=== PATIENT | male | born 1965 | race Caucasian/White ===

== ENCOUNTER 2017-11-22 05:21 | Day surgery (SDC) | payer OTHER ==
[~2017-11-22] VITALS: Ht 175.3 cm; Wt 78.2 kg
[2017-11-22] MEDS ORDERED: LACTATED RINGERS 1,000 ML IV SCH (06:12)
[2017-11-22 06:29] VITALS: BP 123/81
[2017-11-22] MEDS ORDERED: NONE PER PT (06:29)
[2017-11-22] MEDS ORDERED: OFLOXACIN OPHTH 0.3%, 5ML ONE (07:05)
[2017-11-22] MEDS ORDERED: LIDOCAINE/PF 1%, 30ML ONE (07:05)
[2017-11-22] MEDS ORDERED: BACITRACIN OINT 500U/GM, 15 GM ONE (07:06)
[2017-11-22] MEDS ORDERED: EPINEPHRINE 1 MG/ML, 1ML ONE (07:07)
[2017-11-22] MEDS ORDERED: FENTANYL PF 100 MCG/2ML ONE (07:15)
[2017-11-22] MEDS ORDERED: MIDAZOLAM 1 MG/ML, 2ML ONE (07:15)
[2017-11-22] MEDS ORDERED: ONDANSETRON ODT 8 MG PO ONE (07:30)
[2017-11-22] MEDS ORDERED: SCOPOLAMINE PATCH, 1.5MG PATCH.TD72 TD ONE (07:30)
[2017-11-22] MEDS ORDERED: GABAPENTIN 300 MG CAPSULE PO ONE (07:30)
[2017-11-22] MEDS ORDERED: OXYcodone IR 5MG TABLET PO ONE (07:30)
[2017-11-22] MEDS ORDERED: FAMOTIDINE 20 MG TABLET PO ONE (07:30)
[2017-11-22] MEDS ORDERED: ACETAMINOPHEN 500 MG TABLET PO ONE (07:30)
[2017-11-22] MEDS ORDERED: CEFAZOLIN 1,000 MG ONE (08:37)
[2017-11-22] MEDS ORDERED: ONDANSETRON 2MG/ML, 2ML ONE (08:37)
[2017-11-22] MEDS ORDERED: DEXAMETHASONE 4 MG/ML, 1ML ONE (08:37)
[2017-11-22] MEDS ORDERED: PROPOFOL 10 MG/ML, 20ML ONE (08:37)
[2017-11-22] MEDS ORDERED: GELFILM OPHTHALMIC DRESSING ONE (08:59)
[2017-11-22] MEDS ORDERED: PROMETHAZINE 25 MG/ML, 1ML IV PRN (09:00)
[2017-11-22] MEDS ORDERED: hydrALAzine 20 MG/ML, 1ML IV PRN (09:00)
[2017-11-22] MEDS ORDERED: HYDROcodone/APAP 7.5-325MG/15ML UDC PO PRN (09:00)
[2017-11-22] MEDS ORDERED: MEPERIDINE/PF 25MG/0.5ML IVPush PRN (09:00)
[2017-11-22] MEDS ORDERED: MIDAZOLAM 1 MG/ML, 2ML IV PRN (09:00)
[2017-11-22] MEDS ORDERED: LABETALOL 5MG/ML, 20ML IV PRN (09:00)
[2017-11-22] MEDS ORDERED: FENTANYL PF 100 MCG/2ML IV PRN (09:00)
[2017-11-22] MEDS ORDERED: OXYcodone 5 MG/5 ML ORAL.SOL UDC PO PRN (09:00)
[2017-11-22] MEDS ORDERED: ALBUTEROL SULFATE 2.5 MG/3 ML NPPB PRN (09:00)
[2017-11-22] MEDS ORDERED: HYDROmorphone 1 MG/ML, 1ML IV PRN (09:00)
[2017-11-22] MEDS ORDERED: EPHEDRINE 50 MG/ML, 1ML IVPush PRN (09:00)
[2017-11-22] MEDS ORDERED: BACITRACIN ZINC OINT 500U/GM, 0.9 GM TP ONE (09:30)
== END 2017-11-22 11:15 ==
LOC: OUT 05:21
PROVIDERS: ATTEND Specialist
DX: H72.01 Central perforation of tympanic membrane, right ear (principal); H90.A31 Mixed conductive and sensorineural hearing loss, unilateral, right ear with restricted hearing on the contralateral side; Z88.1 Allergy status to other antibiotic agents
CPT/HCPCS: 21235; 69631; J0171; J0690; J1100; J2250; J2405; J2704; J3010; J3490; J7120; Q0162

== ENCOUNTER 2019-09-07 10:11 | Outpatient (CLI) | payer OTHER ==
[~2019-09-07 10:11] MED LIST: NONE PER PT
[2019-09-07 11:28] LABS: BASOPHILS # (AUTO) 0.03 x10^3/uL (0-0.1); BASOPHILS % (AUTO) 1 % (0-1); EOSINOPHILS # (AUTO) 0.23 x10^3/uL (0-0.4); EOSINOPHILS % (AUTO) 5 % (1-7); LYMPHOCYTES # (AUTO) 1.17 x10^3/uL (1-3.4); LYMPHOCYTES % (AUTO) 25 % (22-44); MD NO; MEAN CORPUSCULAR HEMOGLOBIN 28.9 pg (27.5-34.5); MEAN CORPUSCULAR VOLUME 85.1 fL (81-97); MEAN PLATELET VOLUME 7.6 fL (7.4-10.4); MONOCYTES # (AUTO) 0.44 x10^3/uL (0.2-0.8); MONOCYTES % (AUTO) 10 % (2-9); NEUTROPHILS # (AUTO) 2.74 x10^3/uL (1.8-6.8); NEUTROPHILS % (AUTO) 59 % (42-75); PLATELET COUNT 168 x10^3/uL (130-400); RED BLOOD COUNT 4.96 x10^6/uL (4.38-5.82); RED CELL DISTRIBUTION WIDTH 16.9 % (9.4-14.8)
[2019-09-07 11:38] LABS: ANION GAP 8 mmol/L (5-15); CALCIUM 8.5 mg/dL (8.5-10.1); CHLORIDE 108 mmol/L (98-107); CREATININE 1.05 mg/dL (0.7-1.3)
[2019-09-07 11:53] LABS: INTERNATIONAL NORMALIZED RATIO 0.91 (0.93-1.1); PROTHROMBIN TIME 9.6 Seconds (9.6-11.5)
[2019-09-07 12:13] LABS: MICROSCOPIC NOT IND
[2019-09-07 12:17] LABS: CULTURE INDICATED? NO
== END 2019-09-07 23:59 | disposition home or self-care (01) ==
LOC: STAR 10:11
PROVIDERS: ATTEND Neurological Surgery
DX: Z01.818 Encounter for other preprocedural examination (principal); M47.12 Other spondylosis with myelopathy, cervical region
CPT/HCPCS: 36415; 71046; 72050; 80048; 81003; 85025; 85610; 85730; 93005

== ENCOUNTER 2019-09-26 06:31 | Observation (INO) | payer OTHER ==
[~2019-09-26] VITALS: Ht 175.3 cm; Wt 79.1 kg
[2019-09-26] MEDS ORDERED: BACITRACIN 50,000 UNIT ONE (06:57)
[2019-09-26] MEDS ORDERED: BUPIVACAINE/PF-EPI 0.5% 1:200K ONE (06:57)
[2019-09-26] MEDS ORDERED: LACTATED RINGERS 1,000 ML IV SCH (07:16)
[2019-09-26 07:19] VITALS: BP 121/83
[2019-09-26] MEDS ORDERED: CHLORHEXIDINE 15 ML UDC MM STA (08:27)
[2019-09-26] MEDS ORDERED: FENTANYL PF 100 MCG/2ML ONE ×2 (08:56→11:26)
[2019-09-26] MEDS ORDERED: MIDAZOLAM 1 MG/ML, 2ML ONE (08:56)
[2019-09-26] MEDS ORDERED: ONDANSETRON 2MG/ML, 2ML ONE (08:57)
[2019-09-26] MEDS ORDERED: CEFAZOLIN 1,000 MG ONE (08:57)
[2019-09-26] MEDS ORDERED: PROPOFOL 10 MG/ML, 20ML ONE (08:57)
[2019-09-26] MEDS ORDERED: DEXAMETHASONE 4 MG/ML, 1ML ONE (08:57)
[2019-09-26] MEDS ORDERED: PROMETHAZINE 25 MG/ML, 1ML IV PRN (11:30)
[2019-09-26] MEDS ORDERED: HYDROmorphone 2 MG/ML, 1ML IVPush PRN (11:30)
[2019-09-26] MEDS ORDERED: ACETAMINOPHEN 325 MG TABLET PO PRN (11:30)
[2019-09-26] MEDS ORDERED: OXYcodone 5 MG/5 ML ORAL.SOL UDC PO PRN (11:30)
[2019-09-26] MEDS ORDERED: DIAZEPAM 5 MG/ML, 2ML IVPush PRN (11:30)
[2019-09-26] MEDS ORDERED: FENTANYL PF 100 MCG/2ML IV PRN (11:30)
[2019-09-26] MEDS ORDERED: MEPERIDINE/PF 25MG/ML,1ML IVPush PRN (11:30)
[2019-09-26] MEDS ORDERED: MEPERIDINE/PF 100 MG/ML IM PRN (13:00)
[2019-09-26] MEDS ORDERED: PROMETHAZINE 25 MG/ML, 1ML IM PRN (13:00)
[2019-09-26] MEDS ORDERED: METHOCARBAMOL 1,000 MG in DEXTROSE 5% 100 ML IV ONE (13:00)
[2019-09-26] MEDS ORDERED: DIAZEPAM 5 MG TABLET PO PRN (13:00)
[2019-09-26] MEDS ORDERED: ONDANSETRON 2MG/ML, 2ML IVPush PRN (13:00)
[2019-09-26] MEDS ORDERED: OXYcodone/APAP 5/325MG TABLET PO PRN (13:00)
[2019-09-26] MEDS ORDERED: CEFAZOLIN PMX 1GM/50ML 50 ML IVPB SCH (13:00)
[2019-09-26] MEDS ORDERED: PHARMACY MAY ADJ FOR RENAL FX MC PRN (13:00)
[2019-09-26] MEDS ORDERED: MAGNESIUM HYDROXIDE 8%, 30ML UDC PO PRN (13:00)
[2019-09-26] MEDS ORDERED: METHOCARBAMOL 750 MG TABLET PO PRN (13:00)
[2019-09-26] MEDS ORDERED: BISACODYL 10 MG SUPP PR PRN (13:00)
[2019-09-26] MEDS ORDERED: DIPHENHYDRAMINE 50 MG/ML, 1ML IVPush PRN (13:00)
[2019-09-26] MEDS ORDERED: HYDROmorphone 1 MG/ML, 1ML INJ IVPush PRN (13:00)
[2019-09-26] MEDS: NS + 20MEQ KCL 1,000 ML IV SCH (17:44)
[2019-09-26 17:53] VITALS: BP 124/76
[2019-09-26] MEDS: CEFAZOLIN PMX 1GM/50ML 50 ML IVPB SCH (18:46)
[2019-09-26 19:44] VITALS: BP 127/68
[2019-09-26] MEDS: SODIUM CHLORIDE FLUSH 10ML SYR IVF SCH (20:46)
[2019-09-27 00:29] VITALS: BP 106/64
[2019-09-27] MEDS: CEFAZOLIN PMX 1GM/50ML 50 ML IVPB SCH (02:40)
[2019-09-27] MEDS: NS + 20MEQ KCL 1,000 ML IV SCH (03:09)
[2019-09-27 04:08] VITALS: BP 102/62
[2019-09-27 07:27] VITALS: BP 111/68
[2019-09-27] MEDS: SODIUM CHLORIDE FLUSH 10ML SYR IVF SCH (08:21)
[2019-09-27] MEDS ORDERED: METH750T2 PO (08:50)
[2019-09-27] MEDS ORDERED: OXYcodone/APAP 5/325MG PO (08:50)
[2019-09-27] MEDS ORDERED: ACETAMINOPHEN 325 MG TABLET PO PRN (09:00)
[2019-09-27] MEDS ORDERED: SENNA/DOCUSATE TABLET PO SCH (09:00)
== END 2019-09-27 13:10 | disposition home or self-care (01) ==
LOC: OUT 06:31 → ORIP 12:41 → 4NE 14:36
PROVIDERS: ADMIT Neurological Surgery; ATTEND Neurological Surgery
DX: M50.00 Cervical disc disorder with myelopathy, unspecified cervical region (principal); M48.02 Spinal stenosis, cervical region; Z87.891 Personal history of nicotine dependence
CPT/HCPCS: 20936; 22551; 22854; 63081; 72040; 95938; 95941; 96365; 96366; 97162; 97166; C1713; C1889; G0378; J0690; J1100; J2250; J2405; J2704; J2800; J3010; J3480; J7120